=== PATIENT | female | born 1965 | race Caucasian/White ===

== ENCOUNTER → 2016-12-04 | Outpatient (CLI) | payer BC | END | disposition home or self-care (01) | LOC: C.PAPS 10:40 | PROVIDERS: ATTEND Obstetrics & Gynecology | DX: Z01.419 Encounter for gynecological examination (general) (routine) without abnormal findings (principal) ==

== ENCOUNTER → 2017-02-16 | Outpatient (CLI) | payer BC ==
--- NOTE | 2017-02-16 14:58 | MAMMOGRAPHY REPORT ---
BILATERAL DIGITAL DIAGNOSTIC MAMMOGRAM TOMOSYNTHESIS WITH CAD: 02/16/2017 CLINICAL HISTORY: 12 month follow-up of bilateral breast calcifications. No current complaints. TECHNIQUE: Breast tomosynthesis in addition to standard 2D mammography was performed. Current study was also evaluated with a Computer Aided Detection (CAD) system. Bilateral CC and MLO 2-D and jaky synthesis images and bilateral spot magnification CC and ML views were obtained. COMPARISON: Comparison is made to exams dated: 02/16/2016 mammogram, 02/11/2015 mammogram, 02/17/2016 ultrasound, 07/30/2014 mammogram, 01/20/2014 mammogram, and 01/15/2014 mammogram - [facility]. BREAST COMPOSITION: The tissue of both breasts is extremely dense, which lowers the sensitivity of mammography. FINDINGS: There are numerous scattered and grouped punctate benign-appearing calcifications seen th roughout the right superior breast on the magnified views, which are not significantly changed on sp ot magnification views compared to the January 2016 exam, and in retrospect do not appear significantl y changed compared to multiple prior exams including the December 2013 exam. Spot magnification views of the left breast again demonstrate scattered and grouped calcifications in the left superior breas t; many of the calcifications demonstrate layering on the ML and MLO views, consistent with benign m ilk of calcium. These calcifications are stable on spot magnification views dating back to February 08, and are considered benign given the morphology and long-term stability. There are no suspicious masses, calcifications, or areas of architectural distortion noted in either breast. There has bee n no significant interval change compared to prior exams. A cardiac device obscures portions of the left superior breast on the MLO view. IMPRESSION: ACR BI-RADS CATEGORY 2: BENIGN Bilateral benign-appearing calcifications are stable dating back to at least the 2013 exams, and are considered benign given the morphology and long-term stability. There is no mammographic evidence of malignancy. A 1 year screening mammogram is recommended. The patient has been verbally notified of the results. Approximately 10% of breast cancers are not detected with mammography. A negative mammographic repor t should not delay biopsy if a clinically suggestive mass is present. Rylie Parker M.D. ah/:02/16/2017 08:56:09 Workers Compensation Specialist: Stiven STEPHENS(Roselia)(M), [facility] letter sent: Normal 1/2 BI-RADS Code: ACR BI-RADS Category 2: Benign
== END | disposition home or self-care (01) ==
LOC: C.MAMM 08:17
PROVIDERS: ATTEND Obstetrics & Gynecology
DX: R92.1 Mammographic calcification found on diagnostic imaging of breast (principal)

== ENCOUNTER → 2017-10-18 | Outpatient (CLI) | payer BC | END | disposition home or self-care (01) | LOC: C.MAMM 13:35 | PROVIDERS: ATTEND Family Medicine | DX: M81.0 Age-related osteoporosis without current pathological fracture (principal); M85.861 Other specified disorders of bone density and structure, right lower leg; M85.862 Other specified disorders of bone density and structure, left lower leg ==

== ENCOUNTER → 2017-12-13 | Outpatient (CLI) | payer BC | END | disposition home or self-care (01) | LOC: C.PAPS 14:58 | PROVIDERS: ATTEND Obstetrics & Gynecology | DX: Z01.419 Encounter for gynecological examination (general) (routine) without abnormal findings (principal) ==

== ENCOUNTER 2024-12-10 22:03 | Inpatient (IN) ==
[2024-12-10 22:40] LABS: Basophils # (auto) 0.06 K/uL (0.00-0.20); Basophils % (auto) 1.3 %; Eosinophils # (auto) 0.12 K/uL (0.00-0.50); Eosinophils % (auto) 2.5 %; Hematocrit (blood only) 35.4 % (37.0-47.0); Hemoglobin 12.2 g/dl (12.0-16.0); Immature Granulocytes # (auto) 0.01 K/uL (0.01-0.20); Immature Granulocytes % (auto) 0.2 %; Lymphocytes # (auto) 1.31 K/uL (1.20-3.40); Lymphocytes % (auto) 27.3 %; Mean Corpuscular Hemoglobin 33.6 pg (25.0-34.0); Mean Corpuscular Hgb Conc 34.5 g/dL (32.0-36.0); Mean Corpuscular Volume 97.5 fL (80.0-100.0); Mean Platelet Volume 9.3 fL (9.4-12.4); Monocytes # (auto) 0.51 K/uL (0.11-0.59); Monocytes % (auto) 10.6 %; Neutrophils # (auto) 2.79 K/uL (1.40-6.50); Neutrophils % (auto) 58.1 %; Platelet Count 156 K/uL (130-400); RDW Coefficient of Variation 11.8 % (11.5-14.5); RDW Standard Deviation 42.4 fL (36.4-46.3); Red Blood Count 3.63 M/uL (4.20-5.40)
[2024-12-10 22:48] LABS: Albumin Level 4.3 gm/dl (3.4-5.0); BUN Creatinine Ratio 18.6 (10-20); Bilirubin,Total 0.4 mg/dl (0.2-1.0); Calcium 9.3 mg/dl (8.6-10.3); Creatinine Clr Calc Pharmacy 71.8 ml/min; Globulin 2.2 gm/dl (2.5-4.0); Potassium 4.5 mmol/L (3.5-5.1); Total Protein 6.5 gm/dl (6.0-8.3)
[2024-12-11 01:20] LABS: Magnesium 2.2 mg/dl (1.7-2.4); Phosphorus 3.7 mg/dl (2.5-4.9)
--- NOTE | 2024-12-11 01:32 | History & Physical Report ---
Date of Service December 11, 2024 Assessment & Plan (1) Eating disorder: Plan: patient with restrictive eating habits rehab placement Case management consultation appreciated Monitor electrolytes, phosphorus and mag (2) Hyponatremia: Plan: Sodium = 129, asymptomatic. Patient appears somewhat volume contracted on physical exam. Suspect this mild dehydration is underlying cause for hyponatr emia as well as decreased solute intake from eating disorder. Check urine and serum osmolality Check random urine sodium Gentle IV fluids with D5 normal saline Repeat labs in the morning History of Present Illness Chief Complaint: sent by PCP for abnormal labs Primary Care Provider: Rachael Rodriges MD .Rebecca Nicholas Is a 59-year-old female with history of an eating disorder ongoing since at least 2019 (restrictive, no purging, possibly over exercising ?), history of nonsustained V. tach with AICD in place (family history of sudden cardiac ) patient reports to her PCP for low sodium detected on outpatient labs. She denies headache, dizziness, imbalance, seizure. No additional complaints Interested in rehab placement for her eating disorder Allergies Allergy/AdvReac Type Severity Reaction Status Date / Time metoprolol Allergy Intermediate worsens Verified 05/21/24 09:20 [From Lopressor HCT] Raynaud's syndrome neomycin Allergy Intermediate localized Verified 05/21/24 09:20 redness Home Medications Medication Instructions Recorded Confirmed Type cholecalciferol (vitamin D3) 125 125 mcg PO DAILY 01/27/21 05/21/24 History mcg (5,000 unit) tablet (Vitamin D3) multivitamin 1 tab PO DAILY 01/27/21 05/21/24 History teriparatide 20 mcg/dose (750 20 mcg subcut DAILY 04/21/22 05/02/23 History mcg/3 mL) subcutaneous pen injector triamcinolone acetonide 0.025 % 1 applic topical DAILY 04/21/22 05/21/24 History topical cream calcium ER 600 mg (as carb,cit)-D3 0.5 tab PO QAM 05/25/22 05/02/23 History 12.5 mcg (500 unit) tablet, ext.rel (Citracal-D3 Slow Release) nystatin-triamcinolone 100,000 1 applic topical BID #30 grams 05/02/23 05/21/24 Rx unit/gram-0.1 % topical ointment lutein-zeaxanthin extract [lutein] PO 05/21/24 05/21/24 History Past Med/Surg History Problem List (Updated 12/11/24 @ 05:14 by Terri Ibrahim DO) Hyponatremia Eating disorder Osteoporosis PMB (postmenopausal bleeding) Medical History Disorder of cecum "long cecum" via CT scan ([facility]) Varicose vein of leg Raynauds disease Osteopenia Osteoporosis Squamous cell skin cancer Hx of ventricular tachycardia 2007. no problems since. Cardiac defibrillator in place Left chest wall (superficial). originally placed in 2007 -- replaced in 2013. "primary prevention for an episode of v.tach" Follows with Dr. Ferrer ([place]). last checked remotely 12/28/20. also follows Dr. Anna Dias [facility] annually. Mitral valve disorder hx mitral valve prolapse. no problems. Surgical History H/O vein stripping Left History of cardiac defibrillator placement (~2013) History of surgical removal of skin lesion S/P skin biopsy vulvar H/O colposcopy with cervical biopsy 1992, Dr. Morocho, condyloma History of wisdom tooth extraction Family History Father Prostate cancer Kidney disease Mother FHx: sudden cardiac (SCD), Onset Age: 48 Other FH: kidney cancer No family history of adverse response to anesthesia Denies family history of Ovarian cancer Breast cancer Colorectal cancer Social History Smoking Status: Never smoker Second Hand Exposure: No; Do You Dip or Chew Tobacco: No; Hx Alcohol Use: No Hx Substance Use: No Preferred Language: Micronesian Communication Ability: Effective Hydrometeorologist Required: No Beliefs That Will Affect Care: None Current Living Situation: Spouse Feels Safe at Home: Yes Assistive Devices: None Review of Systems Review of Systems: All systems reviewed & are unremarkable except as noted in HPI & below Physical Exam Physical Exam: General: patient resting comfortably, NAD, thin and frail appearance, AA&O x 4 Skin: warm, dry, intact, no rashes or lesions HEENT: NC/AT, PERRL, EOMI, anicteric sclera, right conjunctival injection, external ear normal to inspection and nontender, nares patent, moist mucus membranes, dentition intact, no oropharyngeal lesions, neck supple, trachea midline, no LAD, no thyromegaly, no JVD Heart: +S1/S2, regular, bradycardic,no m/r/g Lungs: equal air entry bilaterally, no rales/rhonchi/wheezes Abd: +BS, soft, NT/ND, no masses/organomegaly/ascites Ext: warm, 2+ pulses in UE/LE bilaterally, no clubbing/cyanosis or edema Neuro: nonfocal, patient AA&O x 4, speech intact, no facial droop, moving all extremities on command with equal strength 5/5 Results & Data Results & Data Vital Signs (Past 12 Hours) Vital Signs Temp Pulse Resp BP Pulse Ox O2 Del Method 12/11/24 01:00 53 L 18 118/80 98 Room Air 12/11/24 00:45 53 L 11 L 98 12/11/24 00:03 52 L 19 127/82 98 Room Air 12/10/24 23:00 58 L 26 H 97/70 L 99 Room Air 12/10/24 22:21 50 L 12/10/24 22:05 36.3 C L 73 16 133/81 97 Room Air Laboratory Results Laboratory Results WBC 4.80 K/ul (4.8-10.8) 12/10/24 21:18 RBC 3.63 M/uL (4.20-5.40) L 12/10/24 21:18 Hgb 12.2 g/dl (12.0-16.0) 12/10/24 21:18 Hct 35.4 % (37.0-47.0) L 12/10/24 21:18 MCV 97.5 fL (80.0-100.0) 12/10/24 21:18 MCH 33.6 pg (25.0-34.0) 12/10/24 21:18 MCHC 34.5 g/dL (32.0-36.0) 12/10/24 21:18 RDW Std Deviation 42.4 fL (36.4-46.3) 12/10/24 21:18 RDW Coeff of Cesar 11.8 % (11.5-14.5) 02/19/25 21:18 Plt Count 156 K/uL (130-400) 12/10/24 21:18 MPV 9.3 fL (9.4-12.4) L 12/10/24 21:18 Immature Gran % (Auto) 0.2 % 12/10/24 21:18 Neut % (Auto) 58.1 % 12/10/24 21:18 Lymph % (Auto) 27.3 % 12/10/24 21:18 Branch % (Auto) 10.6 % 12/10/24 21:18 Eos % (Auto) 2.5 % 12/10/24 21:18 Baso % (Auto) 1.3 % 12/10/24 21:18 Neut # (Auto) 2.79 K/uL (1.40-6.50) 12/10/24 21:18 Lymph # (Auto) 1.31 K/uL (1.20-3.40) 12/10/24 21:18 Branch # (Auto) 0.51 K/uL (0.11-0.59) 12/10/24 21:18 Eos # (Auto) 0.12 K/uL (0.00-0.50) 12/10/24 21:18 Baso # (Auto) 0.06 K/uL (0.00-0.20) 12/10/24 21:18 Immature Gran # (Auto) 0.01 K/uL (0.01-0.20) 12/10/24 21:18 Sodium 129 mmol/L (136-145) L 12/10/24 22:18 Potassium 4.5 mmol/L (3.5-5.1) 12/10/24 22:18 Chloride 98 mmol/L (98-107) 12/10/24 22:18 Carbon Dioxide 29 mmol/L (21-32) 12/10/24 22:18 Anion Gap 2 (3-11) L 12/10/24 22:18 BUN 13 mg/dl (6-23) 12/10/24 22:18 Creatinine 0.70 mg/dl (0.6-1.2) 12/10/24 22:18 Est Cr Clr Drug Dosing 71.8 ml/min 12/10/24 22:18 eGFR 100.81 12/10/24 22:18 BUN/Creatinine Ratio 18.6 (10-20) 12/10/24 22:18 Glucose 59 mg/dl (70-99(Fasting)) L 12/10/24 22:18 Osmolality 271 mOsm/kg (280-300) L 12/10/24 22:18 Calcium 9.3 mg/dl (8.6-10.3) 12/10/24 22:18 Phosphorus 3.7 mg/dl (2.5-4.9) 12/10/24 22:18 Magnesium 2.2 mg/dl (1.7-2.4) 12/10/24 22:18 Total Bilirubin 0.4 mg/dl (0.2-1.0) 12/10/24 22:18 AST 30 U/L (13-39) 12/10/24 22:18 ALT 25 U/L (7-52) 12/10/24 22:18 Alkaline Phosphatase 58 U/L (34-104) 12/10/24 22:18 Total Protein 6.5 gm/dl (6.0-8.3) 12/10/24 22:18 Albumin 4.3 gm/dl (3.4-5.0) 12/10/24 22:18 Globulin 2.2 gm/dl (2.5-4.0) L 12/10/24 22:18 Albumin/Globulin Ratio 2.0 (0.9-2) 12/10/24 22:18 PG Care Time/CCT Total # of Minutes Spent Total Time Spent with Patient: Total time spent is greater than 50% in coordination of care (as documented) at patient's floor/unit and/or counseling patient: Coding Level of Care Code 03674 INT INP/OBS CARE 3/75MIN Diagnoses Eating disorder F50.9 Hyponatremia E87.1
[2024-12-11] MEDS ORDERED: DEXTROSE 50% 50 ML SYRINGE IV PRN (03:22)
[2024-12-11] MEDS ORDERED: GLUCAGON FOR INJ 1 MG VIAL SQ PRN (03:22)
[2024-12-11] MEDS ORDERED: CARBOHYDRATES FOR HYPOGLYCEMIA PO PRN (03:22)
[2024-12-11] MEDS ORDERED: ACETAMINOPHEN 325 MG TAB PO PRN (03:22)
[2024-12-11] MEDS ORDERED: GLUCOSE 10 TAB/TUBE PO PRN (03:22)
[2024-12-11] MEDS ORDERED: ONDANSETRON INJ 2 MG/ML 2 ML VIAL IV PRN (03:22)
[2024-12-11] MEDS ORDERED: GLUCOSE 40% GEL 15 GM TUBE PO PRN (03:22)
[2024-12-11] MEDS: D5W AND NSS 1,000 ML IV SCH (03:43)
--- OUTSIDE RECORDS SUMMARY | 2024-12-11 04:40 | External Medical Summary | Continuity of Care Document ---
Author Name Unknown Organization [facility] [address] [facility] Address [address] [place], [place] [id number] Care Team Providers Care Quotation Checker Name Role Phone Rachael Rodriges Primary Care Physician [phone] Encounter [facility] [id number] Date(s): 11/24/24 - 11/24/24 [facility] [address], [address] [place] [address] [phone] Encounter Diagnosis Body mass index [BMI] 19.9 or less, adult(Discharge Diagnosis) - 11/24/24 Severe restricting type anorexia nervosa(Discharge Diagnosis) - 11/24/24 Discharge Disposition: Home or Self Care Attending Physician: MD Rodriges Amy L Referring Physician: MD Rodriges Amy L Allergies, Adverse Reactions, Alerts Substance Criticality Severity Reaction Reaction Severity Status Lopressor worsens Raynauds Act lou Neosporin topical ointment redness at site Active Assessment and Plan Extracted from: Title:Office Visit Note Author:MD Rodriges Amy L D ate:11/24/24 1.Severe restricting type anorexia nervosa A long and detailed discussion was carried out initially with the patient by herself. I later asked her to go and get her out of their vehicle,and bring him in so that he can join in the conversation. We spent [id number] minutes discussingher medical condition in detail. I did emphasize to the patient and to her thather eating disorder is clearly out of control at this point, and is approachingthe point at whichit could be deadly. The patient continued to say"I will just eat more", however, her pointed out to herthat she has been saying thisat every office visit for the last several years. He gave numerous examples of disagreements that they have had because of her refusal to make changes that would add calories to her diet. I did not reveal her weight to her, however,I did tell her that at every visit to our office her weight hasdecreased, despite her intention to"eat more". When we discussed the need for inpatient treatment,both the patient and her wereinitially very resistant to this idea. I explained to themthe concept ofrefeeding syndrome, and how this can bedangerous or even life- threatening. We discussed the fact thatfrancis would need to be admitted to the hospitalfor period of time at least to getmedically stabilized, before she canparticipate in outpatient therapy. I informedher that she is not stable for outpt tx at thistime. We discussed the fact thatthere are somefacilities thatexclusively deal with eating disorders, such [facility]. Patientsmaystay there for protracted periods of time, but I clarified that they would most likely not accept her until she has been medically stabilized. Both the patient and her werevery shockedthat things had gotten this bad, or that we would be discussingthe possibility of inpatient treatment. Her reiterated numerous times that he would doanything thathe could do, in order to keep from losing his . He expressed support for her throughout the visit. I advised that she needed to be evaluated in a facility that has experience in treating eating disorders. I recommended thatfrancis presenttothe [facility], but would be open to other suggestions, if they had a preference. I also advised that she should do this PATRICIA. At the conclusion of this visit, she had agreed to do whatever her wanted her to do, in order to get better. He agreed to drive her there directly. I tried to call ER at [facility] to sign pt out. I spoke to a charge nurse, Asia. She reported that she did not need to receive this info & they would get any info they needed when she arrived there. 2.Body mass index [BMI] 19.9 or less, adult Return to be determined, pending events of inptwork up. Time:Total time spent with this patient on day of evaluation including chart review, ordering, education and coordination of care elements: _43 minutes Immunizations Given and Recorded Vaccine Date Status Refusal Reason influenza virus vaccine, inactivated 09/07/22 Tian rded Medications amoxicillin 500 mg oral capsule Start: 11/14/16 9:41:00 AM EST, 4 cap, PO, As indicated, Disp# 12 cap, Refills: 3, one hour before dental and other procedures as directed Start Date: 11/14/16 Status: Ordered calcium (as carbonate) 600 mg oral tablet Start: 11/24/24 11:30:00 AM EST Start Date: 11/24/24 Status: Ordered Colace Start: 09/24/18 8:54:00 AM EST, PRN Start Date: 09/24/18 Status: Ordered ketoconazole 2% topical cream Start: 05/15/18 2:46:00 PM EDT, 1 appl, topical, bid, Disp# 15 g, Refills: 1, `APPLY TO [facility]NTIL CLEAR, Pharmacy: [facility]/pharmacy #[id number] Start Date: 05/15/18 Status: Ordered lutein Start: 11/20/18 9:58:00 AM EST, See Instructions, 1 daily Start Date: 11/20/18 Status: Ordered multivitamin Start: 03/08/22 8:49:00 AM EDT, 1 tab, PO, Daily Start Date: 03/08/22 Status: Ordered Reclast Start: 11/24/24 11:30:00 AM EST, Once yearly Start Date: 11/24/24 Status: Ordered triamcinolone 0.1% topical cream Start: 11/23/21 8:57:00 AM EST Start Date: 11/23/21 Status: Ordered Tylenol 500 mg oral tablet Start: 05/07/13 3:30:00 PM EDT, 1 tab, PO, q6h, PRN: as needed for pain Start Date: 05/07/13 Status: Ordered Vitamin D3 Start: 12/18/17 2:37:00 PM EST, 5,000 Int_Unit =, PO, Daily Start Date: 12/18/17 Status: Ordered Mental Status 11/24/24 Barriers to Learning one year None evide nt Mandatory Health Literacy Documentation Yes Health Literacy Communication Barriers N ever Primary Language Moroccan Problem List Condition Confirmation Course Effective Dates Status H ealt Status Informant Androgenic alopecia Confirmed Active Anorexia nervosa, restricting type, moderate Confirmed Active Anxiety Confirmed Active Cervical cancer screening Confirmed 04/25/22 Active Cardioverter defibrillator procedure Confirmed Active Constipation Confirmed Active Generalized OA Confirmed Active Atypical eating disorder Confirmed Active Arm erythema Confirmed Active Essential thrombocytosis Confirmed Active History of Raynaud's syndrome Confirmed Active History of DVT (deep vein thrombosis) 1 Confirmed Active Personal history of DVT (deep vein thrombosis) Confirmed Active H/O ventricular tachycardia Confirmed Active History of dysplastic nevus Confirmed Active Hyponatremia Confirmed Active Oral mucosal lesion Confirmed Active Leukocytosis Confirmed Active Leukocytosis Confirmed Active Leukopenia Confirmed Active Elevated liver function tests Confirmed Active Mildly underweight adult Confirmed Active OCD (obsessive compulsive disorder) Confirmed Active Orthorexia nervosa Confirmed Active Osteoporosis Confirmed Active Annual physical exam Confirmed Active Dietary counseling Confirmed Active Colon cancer screening Confirmed Active PVC's (premature ventricular contractions) Confirmed Active Raynaud's disease Confirmed Active Raynaud's disease Confirmed Active Rib pain on right side Confirmed Active Squamous cell skin cancer Confirmed Active Left arm swelling Confirmed Active Vitamin D deficiency Confirmed Active 1Left subclavian DVT 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 Diagnosis Diagnosis Type Effective Dates Health Status Clinical Service Informant Body mass index [BMI] 19.9 or less, adult Discharge Diagnosis 11/24/24 Non-Specified Severe restricting type anorexia nervosa Discharge Diagnosis 11/24/24 Non-Specified Procedures Procedure Date Related Diagnosis Body Site Status Mammogram 1 05/11/23 Completed Bone density scan 2 03/20/23 Compl eted Mammogram 3 05/10/22 Completed Papanicolaou smear sample 4 04/25/22 Completed DEXA - dual energy X-ray absorptiometry 5 10/24/21 Completed Mammogram 6 05/09/21 Completed Colonoscopy 7 02/01/21 Completed Mammogram 8 05/05/20 Completed DEXA (dual energy X-ray absorptiometry) of lateral spine 9 10/20/19 Completed Mammogram 10 04/25/19 Completed Date of last PAP test 11 01/03/19 Completed Mammogram 12 04/23/18 Completed Shave biopsy of skin 12/18/17 Comp leted Date of last PAP test 13 12/14/17 Completed DEXA - Dual energy X-ray jing ton absorptiometry 14, 15 10/18/17 Completed X-ray of rib 16 09/15/17 Completed Mammogram 17 02/16/17 Completed PAP test date 18 12/04/16 Complete d Bilateral digital diagnostic mammogram with CAD 19 02/16/16 Completed Ultrasound 20 02/16/16 Completed X-ray of rib 21 02/07/16 Completed Papanicolaou smear 22 11/30/15 Com pleted Exercise stress test 23 08/26/15 C ompleted Surgery 2013 Completed Cardioverter defibrillator procedure 09/2008 Completed Vascular surgery 25 10/22/03 Compl eted [address] [place] [address] Impression: ACR BI-RADS CATEGORY 2: BENIGN 1. [facility]: 1. AP spine L1-L4: T-score: -3.8 2. Femur neck left T-score: -2.5 3. Femur neck right T-score: -2.5 4. Femur total left T-score: -2.6 5. Femur total right T-score: -2.9 6. Z-score: -3.0. BMD very low for age and sex [address] [place] [address] Impression: ACR BI-RADS CATEGORY2: BENIGN 1. No evidence of malignancy 4Routine exam without abnormal findings 5AP Spine L1-L4 T-score -3.3 Femur neck left T-score -2.3 Femur neck right T-score -2.3 Femur total left T-score -1.9 Femur total right T-score -2.2 Z-score -2.6 patient has very low BMD for age and sex. Causes of secondary bone loss should be investigated. 6No mammographic evidence of malignancy. 1 year screening is recommended. 7The entire examined colon is normal. No specimens collected. Repeat screening in 10 years. 8No mammographic evidence of malignancy. 1 year screening recommended. 9T-scores : spine -2.6; L femur neck -2.0; R femur neck -1.8; L total femur - 1.5; R total femur -1.5; Z-score suggests 2ndary cause; FRAX : major osteoporotic fx 5%; hip fx 0.7% 10No mammographic evidence of malignancy. 1 year screening mammogram is recommended. 11Negatiev for intraepithelial lesion or malignancy. 12No mammographic evidence of malignancy. 1 year screening is recommended. 13Negative for intraepithelial lesion or malignancy. 14T-scores : spine -2.8; L femur neck -1.9; R femur neck -1.8; total femur -1.8 15z-score -2.4, suggests secondary causes 16No acute bony abnormality. [facility] Impression: ACR BI-RADS CATEGORY 2: BENIGN 1. Bilateral benign-appearing calcifications are stable dating back to at least the 2013 exams and are considered benin given the morphology and long-term stablitly. There is no mammographic evidenceof malignancy. A 1 year screening is recommended 18wnl exam 19[facility] Impression: ACR BI-RADS CATEGORY 3: PROBABLY BENIGN 1. There are numerous bilateral clusters of similar appearing microcalcifications in the breasts, which most likely represent fibrocystic changes. However, some of the right breast microcalcifications are increasingly conspicuous compared to prior mammograms. Therefore, another follow-up bilateral mammogram including repeat spot magnification views is recommended in 12 months. 20Bilateral breast. there is no sonographic evidence of malignancy. No suspicious abnormality is seenin the area of palpable concern in the left 12:00 breast. Therefore, clnical follow up is recommended. Additionally, recommend repeat bilateral mammograms including spot magnification views in 12 months. These results and recommendations were discussed with the patient at the time of exam. 21No acute disease. 22[facility] Negative for intraepithelial lesion or malignancy 23Normal 24defib replacement, lead extraction 25stripping of left greater saphenous Vital Signs Most recent to oldest [Reference Range]: 1 Height 180 cm (11/24/24 11:16 AM) Patient Weight 48.9 kg (11/24/24 11:16 AM) Body Mass Index 15.09 kg/m2 (11/24/24 11:16 AM) Heart Rate 64 bpm (11/24/24 11:16 AM) Respiratory Rate 18 br/min (11/24/24 11:16 AM) Blood Pressure 110/80mmHg (11/24/24 11:16 AM) Cuff Pulse Pressure 30 mmHg (11/24/24 11:16 AM) BP Location # 1 Left Arm (11/24/24 11:16 AM) Social History Social History Type Response Smoking Status Never smoked cigaret danitza Sex Female Sex Representation Female (finding) FCM Outpt Note * MD Antelmo, Rachael Jimenez: PERFORM Event Display: FCM Outpt Note Authored Date: [id number] Chief Complaint discuss weight and medical stability for outpatient treatment History of Present Illness * This patient is being followed longitudinally for chronic serious medical problems by Dr. Rachael Rodriges. Their most recent visitwith Dr. Rodriges: 04/09/24. Here for following concerns : "Low body weight" - Rebecca reports that she is now "scared," by how much weight she has lost.She feels that it is out of her control & has realized that this may be dangerous toher health. She started to see a therapist in [place]. They have told her that they would work on outpttxplans with her, if she can get a note to say that she is medically stable for outpt tx. Albas researched some other sources of care. She has been trying to eat more, so she thought that sheshould have gained some weight. Her is very frustrated with her, because she can't "just eat." She thinks that her body looks terrible. She is not depressed & reports "I have a wonderful life." She wants to gt better & denies any thoughts of self-harm. Physical Exam Vitals & Measurements HR:64(Monitored) RR:18 BP:110/80 HT:180cm WT:48.9kg WT:48.900kg(Dosing) BMI:15.09 PHQ2 Data(Data Documented on:11/24/2024 11:16) Emotional health assessment NEGATIVE General : Alert, in NAD. Pt is quite overdressed (hat, coat, gloves & boots, even indoors).She appears cachectic & ill. Respiratory : Speaks easily in full sentences, with no respiratory distress. Psych : answers all questions appropriately, mood seems normal. Assessment/Plan 1.Severe restricting type anorexia nervosa A long and detailed discussion was carried out initially with the patient by herself. I later asked her to go and get her out of their vehicle,and bring him in so that he can join in the conversation. We spent [id number] minutes discussingher medical condition in detail. I did emphasize to the patient and to her thather eating disorder is clearly out of control at this point, and is approachingthe point at whichit could be deadly. The patient continuedto say"I will just eat more", however, her pointed out to herthat she has been saying thisat every office visit for the last several years. He gave numerous examples of disagreements that they have had because of her refusal to make changes that would add calories to her diet. I did not reveal her weight to her, however,I did tell her that at every visit to our office her weight hasdecreased, despite her intention to"eat more". When we discussed the need for inpatient treatment,both the patient and her wereinitially very resistant to this idea. I explained to themthe concept ofrefeeding syndrome, and how this can bedangerous or even life- threatening. We discussed the fact thatfrancis would need to be admitted to the hospitalfor period of time at least to getmedically stabilized, before she canparticipate in outpatient therapy. I informedher that she is not stable for outpt tx at thistime. We discussed the fact thatthere are somefacilities thatexclusively deal with eating disorders, such [facility]. Patientsmaystay there for protracted periods of time,but I clarified that they would most likely not accept her until she has been medically stabilized. Both the patient and her werevery shockedthat things had gotten this bad, or that we would be discussingthe possibility of inpatient treatment. Her reiterated numerous timesthat he would doanything thathe could do, in order to keep from losing his . He expressedsupport for her throughout the visit. I advised that she needed to be evaluated in a facility that has experience in treating eating disorders. I recommended thatfrancis presenttothe [facility], but would be open to other suggestions, if they had a preference. I also advised that she should do this PATRICIA. At the conclusion o f this visit, she had agreed to do whatever her wanted her to do, in order to get better.He agreed to drive her there directly. I tried to call ER at [facility] to sign pt out. I spoke to a charge nurse, Asia. She reported thatfrancis did not need to receive this info & they would get any info they needed when she arrived there. 2.Body mass index [BMI] 19.9 or less, adult Return to be determined, pending events of inptwork up. Time:Total time spent with this patient on day of evaluation including chart review, ordering, education and coordination of care elements: _43 minutes Problem List/Past Medical History Ongoing Androgenic alopecia Annual physical exam Anorexia nervosa, restricting type, moderate Anxiety Arm erythema Atypical eating disorder Cardioverter defibrillator procedure Cervical cancer screening Colon cancer screening Constipation Dietary counseling Elevated liver function tests Essential thrombocytosis Generalized OA H/O ventricular tachycardia History of DVT (deep vein thrombosis) History of dysplastic nevus History of Raynaud's syndrome Hyponatremia Left arm swelling Leukocytosis Leukocytosis Leukopenia Mildly underweight adult OCD (obsessive compulsive disorder) Oral mucosal lesion Orthorexia nervosa Osteoporosis Personal history of DVT (deep vein thrombosis) PVC's (premature ventricular contractions) Raynaud's disease Raynaud's disease Rib pain on right side Squamous cell skin cancer Vitamin D deficiency Procedure/Surgical History Mammogram| Service Date: 3Bone density scan| Service Date: 03/20/2023Mammogram| Service Date: 2Papanicolaou smear sample| Service Date: 2DEXA - dual energy X-ray absorptiometry| Service Date: 10/24/2021Mammogram| Service Date: 1Colonoscopy| Service Date: 02/01/2021Mammogram| Service Date: 05/05/2020DEXA (dual energy X-ray absorptiometry) of lateral spine| Service Date: 10/20/2019Mammogram| Service Date: 04/25/2019Date of last PAP test| Service Date: 01/03/2019Mammogram| Service Date: 04/23/2018Shave biopsy of skin| Service Date: 12/18/2017Date of last PAP test| Service Date: 12/14/2017DEXA - Dual energy X-ray photon absorptiometry| Service Date: 10/18/2017X-ray of rib| Service Date: 09/15/2017Mammogram|Service Date: 02/16/2017PAP test date| Service Date: 12/04/2016Ultrasound| Service Date: 02/16/2016Bilateral digital diagnostic mammogram with CAD| Service Date: 02/16/2016X-ray of rib| Service Date: 02/07/2016Papanicolaou smear| Service Date: 11/30/2015Exercise stress test| Service Date: 08/26/2015Surgery| Service Date: 2013Cardioverter defibrillator procedure| Service Date: 09/2008Vascular surgery| Service Date: 10/22/2003 Medications acetaminophen(Tylenol 500 mg oral tablet), 1 tab, PO, q6h, PRN amoxicillin(amoxicillin 500 mg oral capsule), 2000 mg= 4 cap, PO, As indicated calcium carbonate(calcium (as carbonate) 600 mg oral tablet) cholecalciferol(Vitamin D3), 5000 Int_Unit, PO, Daily docusate(Colace) ketoconazole topical(ketoconazole 2% topical cream), 1 appl, topical, bid, 1 refills lutein, See Instructions multivitamin, 1 tab, PO, Daily triamcinolone topical(triamcinolone 0.1% topical cream) zoledronic acid(Reclast) Allergies Lopressorworsens Raynauds Neosporin topical ointmentredness at site Social History Smoking Status Never smoked cigarettes Alcohol Use:Current Frequency:1-2 times per year Employment/School Status:Employed, manager acute Description:consulting technical manager Exercise Times per week:5-6 times/week Exercise type:Walking Home/Environment Lives with:Spouse Substance Abuse - Denies Substance Abuse Tobacco - Denies Tobacco Use Use:Never smoker Intake (IView) Smoking History Cigarette smoker: Never smoked cigarettes Tobacco Product Use: Never used other tobacco products SHX E-Cigarette Use: Never Family History Migel's disease...: Sister. Cancer: Father. Gluten sensitivity: Sister and Sister. Heart attack: PGF. Mitral valve disorder: Mother. Pacemaker rhythm: MGF. Prostate carcinoma: Father. Seizure: MGF. Ventricular arrhythmia: Mother. Health Status Family Member(s) Family Member(s) Relationship: Mother, Name: Treasure Callahan, Age: 48 Years Relationship: Father, Name: angelica Callahan, Age: Unknown Immunizations Vaccine Date Status influenza virus vaccine, inactivated 09/07/2022 Recorded Electronic Signature on File Electronically Reviewed/Signed by: Rachael Rodriges MD Author Signature Dt/Tm:11/24/2024 06:22 PM Adult Nurse Practitioner [facility] [address] [place] [address] [facility] Patient Care team information Care Team Personnel Name: MD Antelmo, Rachael Jimenez Position: Physician - Family Med Member Role: Primary Care Provider [address]: [address] [place] [id number] [place] Care Team Related Persons Name: HARSHA MARIE Name: HARSHA MARIE
--- NOTE | 2024-12-11 06:41 | Emergency Department Note ---
Impression & Plan Hyponatremia, Eating disorder, Hypoglycemia admit to the [facility] ED Provider Note NAME: SONYA MARIE AGE: 59 SEX: Female INFORMANT: Patient ED PROVIDER(S): Kath Franz DO CHIEF COMPLAINT: low-sodium PLAN: Disposition: admit to the [facility] MEDICAL DECISION MAKING: this is a 59-year-old female patient with a history of eating disorder who presents at the direction of her PCP. Laboratory studies have been obtained as an outpatient and she was noted to have a sodium of 129. She was told that she was at risk of seizing and that she should come to the emergency department for admission to the hospital. Patient has a history of eating disorder where she withholds food. patient denies any purging. Patient has reached out to an eating disorder rehab center in [place] for possible inpatient admission. She was trying to make those arrangements as an outpatient. Laboratory studies here revealed no leukocytosis or anemia. Sodium was 129. Glucose was 59. Renal function was normal. Other electrolytes were unremarkable. On physical exam, vital signs were stable. Patient did have evidence of some subconjunctival hemorrhage in the right eye but denies any straining to have a bowel movement or vomiting. Care/management discussed with: telecom network manager, patient's , patient's sisters, [facility] team Triage Nursing notes: reviewed and agree with them. Vital Signs: reviewed and remarkable for no significant abnormalities Additional History obtained from: patient's and sisters Chronic Medical/Social Conditions affecting care: eating disorder Prior/ Outside/ External records reviewed: cardiac dysrhythmia with pacemaker/defibrillator in place Differential Diagnosis: electrolyte abnormality, hypoglycemia, eating disorder Diagnostics, independently interpreted by me: Cardiac Monitoring: sinus bradycardia at 58 HPI: 59 year old Female arrives for evaluation of hyponatremia. patient with a history of eating disorder who presents at the direction of her PCP. Laboratory studies have been obtained as an outpatient and she was noted to have a sodium of 129. She was told that she was at risk of seizing and that she should come to the emergency department for admission to the hospital. Patient has a history of eating disorder where she withholds food. patient denies any purging. PAST MEDICAL HISTORY: See Below, PAST SURGICAL HISTORY: See Below, SOCIAL HISTORY: See Below, HOME MEDICATIONS: see list ALLERGIES: see list VITALS: See Below PHYSICAL EXAMINATION: HEENT: Head - normocephalic and atraumatic. Pupils are equal, round, and reactive to light. Extraocular eye muscles are intact, and sclera are anicteric. There is a subconjunctival hemorrhage in the medial aspect of the right sclera. Nose - moist nasal mucosa without discharge. Mouth - moist buccal mucosa. Oropharynx is nonerythematous and there is no tonsillar exudate or edema noted. Neck: Supple; no JVD, nuchal rigidity, cervical lymphadenopathy. Chest: Pacer/defibrillator just beneath the surface of the skin in the left chest Heart: bradycardic rate and regular rhythm. There is a normal S1 and S2 with no murmurs, clicks, or gallops appreciated. Lungs: Clear to auscultation bilaterally with no wheezes, rales, or rhonchi. Abdomen: Soft, completely nontender, nondistended, with good bowel sounds. There are no palpable pulsatile masses or hepatosplenomegaly. There is no guarding, rigidity, or rebound noted. Extremities: No evidence of cyanosis, clubbing, or edema. There are easily palpable peripheral pulses. Skin: Cool and dry with good turgor and no rashes. Emergency Department course: The patient was evaluated in room C-1. A complete history and physical was performed. An order was placed for continuous cardiac monitoring. The patient was in a sinus bradycardia at a rate of 58. IV lock was initiated and labs were drawn as above. I reviewed the results of laboratory studies with the patient and her family. Discussed the case with the telecom network manager and the [facility] Hospitalist. Past Med/Surg History Problem List (Updated 12/11/24 @ 06:41 by Kath Franz DO) Hypoglycemia (Acute) Hyponatremia (Acute) Eating disorder (Acute) Osteoporosis PMB (postmenopausal bleeding) Medical History Disorder of cecum "long cecum" via CT scan ([facility]) Varicose vein of leg Raynauds disease Osteopenia Osteoporosis Squamous cell skin cancer Hx of ventricular tachycardia 2007. no problems since. Cardiac defibrillator in place Left chest wall (superficial). originally placed in 2007 -- replaced in 2013. "primary prevention for an episode of v.tach" Follows with Dr. Ferrer ([facility]). last checked remotely 12/28/20. also follows Dr. Anna Dias [facility] [place] annually. Mitral valve disorder hx mitral valve prolapse. no problems. Surgical History H/O vein stripping Left History of cardiac defibrillator placement (~2013) History of surgical removal of skin lesion S/P skin biopsy vulvar H/O colposcopy with cervical biopsy 1992, Dr. Morocho, condyloma History of wisdom tooth extraction Family History Father Prostate cancer Kidney disease Mother FHx: sudden cardiac (SCD), Onset Age: 48 Other FH: kidney cancer No family history of adverse response to anesthesia Denies family history of Ovarian cancer Breast cancer Colorectal cancer Social History Smoking Status: Never smoker Second Hand Exposure: No; Do You Dip or Chew Tobacco: No; Hx Alcohol Use: No Hx Substance Use: No Preferred Language: Swiss Communication Ability: Effective Operations Representative Required: No Beliefs That Will Affect Care: None Current Living Situation: Spouse Feels Safe at Home: Yes Assistive Devices: None Allergies Allergies Allergy/AdvReac Type Severity Reaction Status Date / Time metoprolol Allergy Intermediate worsens Verified 12/11/24 09:59 [From Lopressor HCT] Raynaud's syndrome neomycin Allergy Intermediate localized Verified 12/11/24 09:59 redness caffeine AdvReac Verified 12/11/24 11:54 Home Meds Home Medications Medication Instructions Recorded Confirmed cholecalciferol (vitamin D3) 125 125 mcg PO DAILY 01/27/21 12/11/24 mcg (5,000 unit) tablet (Vitamin D3) multivitamin 1 tab PO DAILY 01/27/21 12/11/24 triamcinolone acetonide 0.025 % 1 applic topical DAILY PRN 04/21/22 12/11/24 topical cream Irritation calcium ER 600 mg (as carb,cit)-D3 0.5 tab PO QAM 05/25/22 12/11/24 12.5 mcg (500 unit) tablet, ext.rel (Citracal-D3 Slow Release) nystatin-triamcinolone 100,000 1 applic topical BID PRN Rash 12/11/24 12/11/24 unit/gram-0.1 % topical ointment vit A 1,500 mcg-C 60 mg-E 20 1 tab PO DAILY 12/11/24 12/11/24 mg-zinc ox-copper [id number]-gtfd tablet (Lutein Plus With Zeaxanthin) Results & Data (ED) Vital Signs Vital Signs - 24 hr 12/10/24 22:05 12/10/24 22:21 12/10/24 23:00 Temperature 36.3 C L Temperature Source Temporal Artery Scan Pulse Rate 73 50 L 58 L Pulse Rate from SpO2 Sensor 58 L Respiratory Rate 16 26 H Respiratory Effort / Characteristics Non-Labored Spontaneous Respiratory Depth Normal Respiratory Pattern Regular Blood Pressure 133/81 97/70 L Blood Pressure Mean 98 79 Blood Pressure Position Sitting Pulse Oximetry 97 99 Oxygen Delivery Method Room Air Room Air Sepsis Recent Fever Within 48 Hours No Sepsis New/Unexplained Change in Mental Status No Sepsis Action Taken by Nursing No Action Required 12/11/24 00:03 12/11/24 00:45 12/11/24 01:00 Temperature Temperature Source Pulse Rate 52 L 53 L 53 L Pulse Rate from SpO2 Sensor 52 L 53 L Respiratory Rate 19 11 L 18 Respiratory Effort / Characteristics Respiratory Depth Respiratory Pattern Blood Pressure 127/82 118/80 Blood Pressure Mean 97 89 Blood Pressure Position Pulse Oximetry 98 98 98 Oxygen Delivery Method Room Air Room Air Sepsis Recent Fever Within 48 Hours Sepsis New/Unexplained Change in Mental Status Sepsis Action Taken by Nursing Laboratory Data 12/10/24 21:18 12/10/24 22:18 Lab Results 12/10/24 12/10/24 Range/Units 21:18 22:18 WBC 4.80 (4.8-10.8) K/ul RBC 3.63 L (4.20-5.40) M/uL Hgb 12.2 (12.0-16.0) g/dl Hct 35.4 L (37.0-47.0) % MCV 97.5 (80.0-100.0) fL MCH 33.6 (25.0-34.0) pg MCHC 34.5 (32.0-36.0) g/dL RDW Std Deviation 42.4 (36.4-46.3) fL RDW Coeff of Cesar 11.8 (11.5-14.5) % Plt Count 156 (130-400) K/uL MPV 9.3 L (9.4-12.4) fL Immature Gran % (Auto) 0.2 % Neut % (Auto) 58.1 % Lymph % (Auto) 27.3 % [place] % (Auto) 10.6 % Eos % (Auto) 2.5 % Baso % (Auto) 1.3 % Neut # (Auto) 2.79 (1.40-6.50) K/uL Lymph # (Auto) 1.31 (1.20-3.40) K/uL [place] # (Auto) 0.51 (0.11-0.59) K/uL Eos # (Auto) 0.12 (0.00-0.50) K/uL Baso # (Auto) 0.06 (0.00-0.20) K/uL Immature Gran # (Auto) 0.01 (0.01-0.20) K/uL Sodium 129 L (136-145) mmol/L Potassium 4.5 (3.5-5.1) mmol/L Chloride 98 (98-107) mmol/L Carbon Dioxide 29 (21-32) mmol/L Anion Gap 2 L (3-11) BUN 13 (6-23) mg/dl Creatinine 0.70 (0.6-1.2) mg/dl Est Cr Clr Drug Dosing 71.8 ml/min eGFR 100.81 BUN/Creatinine Ratio 18.6 (10-20) Glucose 59 L (70-99(Fasting)) mg/dl Osmolality 271 L (280-300) mOsm/kg Calcium 9.3 (8.6-10.3) mg/dl Phosphorus 3.7 (2.5-4.9) mg/dl Magnesium 2.2 (1.7-2.4) mg/dl Total Bilirubin 0.4 (0.2-1.0) mg/dl AST 30 (13-39) U/L ALT 25 (7-52) U/L Alkaline Phosphatase 58 (34-104) U/L Total Protein 6.5 (6.0-8.3) gm/dl Albumin 4.3 (3.4-5.0) gm/dl Globulin 2.2 L (2.5-4.0) gm/dl Albumin/Globulin Ratio 2.0 (0.9-2) Administered Medications Dextrose/Sodium Chloride (D5w And Nss) 1,000 mls @ 125 mls/hr IV .Q8H FERDINAND Stop: 12/12/24 03:21 Last Admin: 12/11/24 13:02 Dose: 125 mls/hr Documented By: Infusion: 12/11/24 12:59 Dose: Infused Documented By: Admin: 12/11/24 03:43 Dose: 125 mls/hr Documented By: TJJaswant Discharge Plan Visit Data Chief Complaint: Abnormal Labs/Diagnostic Testing Stated Complaint: REF BY DOC,LOW SODIUM ED Provider: Kath Franz Discharge Problem: Hyponatremia, Eating disorder, Hypoglycemia Discharge Instructions Interventions: ED Discharge Assessment Last Done: 12/11/24 03:22
[2024-12-11 16:07] LABS: BUN Creatinine Ratio 16.5 (10-20); Creatinine Clr Calc Pharmacy 59.1 ml/min; Potassium 5.3 mmol/L (3.5-5.1)
[2024-12-11] MEDS: CHOLECALCIFEROL 125 MCG (5,000 UNITS) TAB PO SCH (21:21)
[2024-12-11] MEDS: CALCIUM CITRATE 950 MG TAB PO SCH (21:21)
[2024-12-12 06:27] LABS: Hematocrit (blood only) 34.7 % (37.0-47.0); Mean Corpuscular Hemoglobin 33.7 pg (25.0-34.0); Mean Corpuscular Hgb Conc 34.6 g/dL (32.0-36.0); Mean Corpuscular Volume 97.5 fL (80.0-100.0); Mean Platelet Volume 9.3 fL (9.4-12.4); Platelet Count 143 K/uL (130-400); RDW Coefficient of Variation 11.9 % (11.5-14.5); RDW Standard Deviation 43.1 fL (36.4-46.3); Red Blood Count 3.56 M/uL (4.20-5.40)
[2024-12-12 06:42] LABS: BUN Creatinine Ratio 20.6 (10-20); Calcium 8.4 mg/dl (8.6-10.3); Creatinine Clr Calc Pharmacy 79.8 ml/min; Magnesium 1.9 mg/dl (1.7-2.4); Phosphorus 2.8 mg/dl (2.5-4.9); Potassium 4.3 mmol/L (3.5-5.1)
[2024-12-12 10:48] VITALS: BP 128/75; PULSE 44; RESP 18; TEMP 98.1; O2SAT 99
--- NOTE | 2024-12-12 12:42 | Discharge Summary ---
Discharge Summary Date of Service December 12, 2024 Principal Dx & Hospital Course #1 = Principal Diagnosis (1) Eating disorder: patient with restrictive eating habits rehab placement Case management consultation appreciated Monitor electrolytes, phosphorus and mag (2) Hyponatremia: Sodium = 129, asymptomatic. Patient appears somewhat volume contracted on physical exam. Suspect this mild dehydration is underlying cause for hyponatremia as well as decreased solute intake from eating disorder. Check urine and serum osmolality Check random urine sodium Gentle IV fluids with D5 normal saline Repeat labs in the morning Admission HPI Per Admitting Provider .Rebecca Nicholas Is a 59-year-old female with history of an eating disorder ongoing since at least 2019 (restrictive, no purging, possibly over exercising ?), history of nonsustained V. tach with AICD in place (family history of sudden cardiac ) patient reports to her PCP for low sodium detected on outpatient labs. She denies headache, dizziness, imbalance, seizure. No additional complaints Interested in rehab placement for her eating disorder Discharge Exam GENERAL APPEARANCE NAD, activity normal for age, well developed/ well nourished, no cyanosis, pallor, or diaphoresis. EYES lids/conjunctiva normal. EARS/NOSE/THROAT Mucous membranes moist, nares normal, lips/teeth normal uvula midline without oral pharyngeal erythema, exudate or swelling TMs normal bilaterally. No lymphangitis/lymphedema. HEAD/NECK normocephalic atraumatic, no facial trauma, neck is supple. RESPIRATORY respiratory effort normal, speaks in full sentences, no tripod position, no accessory muscle use. Lungs clear to auscultation without rhonchi, wheezes, rales CARDIAC Regular rate and rhythm, no edema. ABDOMINAL Soft, ND/NT. No evidence of fluid wave. No pulsatile masses on exam, rebound tenderness, Ayala sign or pain over Mcburney's point. MUSCLES/EXTREMITIES No abnormal range of motion, no swelling. SKIN Warm, pink and dry. No rashes, dermatoses, petechiae or lesions. NEUROLOGICAL Speech is clear and appropriate. Normal level of consciousness. Gait and coordination are normal. 5/5 strength in all extremities. PSYCH Normal mood and affect. Judgement/competence is appropriate Discharge Plan Discharge Items Patient Disposition: Home - Self-Care Reason For Visit: HYPONATREMIA, SENT IN BY PCP Discharge Diagnosis: Hyponatremia Activity: Resume your previous activity Non-emergency contact: Primary Care Provider Call non-emergency contact if: you have any medication questions Follow-up/Referrals: Rachael Rodriges MD [Primary Care Provider] - Diet: Regular Addtl Attending Provider Instructions: Follow up with PMD in 1 week Pending Studies at Discharge: No Stand-Alone Forms: My [facility], Smoking Cessation Medications and DC Order Prescriptions: Continued triamcinolone acetonide 0.025 % cream 1 applic topical DAILY PRN (Reason: Irritation) multivitamin Tablet 1 tab PO DAILY cholecalciferol (vitamin D3) [Vitamin D3] 125 mcg (5,000 unit) Tablet 125 mcg PO DAILY calcium carb, citrate-vit D3 [Citracal-D3 Slow Release] 600 mg-12.5 mcg (500 unit) tablet extended release 0.5 tab PO QAM nystatin-triamcinolone 100,000-0.1 unit/gram-% ointment 1 applic topical BID PRN (Reason: Rash) Lutein Plus With Zeaxanthin 1,500 mcg-60 mg -20 mg-15 mg Tablet 1 tab PO DAILY Discharge Orders: Discharge Order (Routine); Ordered 12/12/24 Ordered By: Parmjit Mantilla/Other Patient Handouts: Treating Eating Disorders, Hyponatremia Dc Admission Data Admit Date/Time: 12/11/24 01:32 Attending Provider: Parmjit Warren Admit Provider: Terri Ibrahim Primary Care Provider: Rachael Rodriges Other Providers: Terri Ibrahim; Vy Camilo; Yon Lua; Kailee Wall; Mi Leone; Vivek Salmerno; Ginette Fuentes Other Interventions: Discharge Summary Assessment (RN) Last Done: 12/12/24 11:10 Hospital Stay Data Consultations 12/11/24 00:44 ED Decision to Admit Stat 12/11/24 15:32 Consult Psychiatry Routine Pending Results Patient Have Any Pending Studies at Discharge: No Discharge Instructions Given to Patient (Per Discharging Provider) Follow up with PMD in 1 week Total Time Total Time Spent Total Time Spent (In Minutes): 50 Coding Level of Care Code 65355 INP/OBS DISCH >30 MIN Diagnoses Eating disorder F50.9 Hyponatremia E87.1
== END 2024-12-12 13:31 | disposition home or self-care (01) | DRG 887 ==
LOC: ED 22:03 → EDINP 12-11 01:32 → SUATTDRO 12-11 01:32 → 2W 12-11 03:22